=== PATIENT | female | born 1975 | race Hispanic/Latino ===

== ENCOUNTER 2016-12-30 20:43 | Emergency (ER) | payer BC ==
[2016-12-30 21:33] LABS: #Basophils 0.1 thou/uL (0.0-0.2); #Eosinphils 0.3 thou/uL (0.0-0.7); #Lymphocytes 2.5 thou/uL (1.20-3.40); #Monocytes 0.5 thou/uL (0.11-0.59); #Neutrophils 5.3 thou/uL (1.40-6.50); %Eosinophils 3.2 % (0.0-10.0); %Lymphocytes 28.6 % (21.0-51.0); %Monocytes 5.8 % (0.0-10.0); Hematocrit 39.1 % (36.0-47.0); Red Blood Cell (RBC) Count 3.99 mill/uL (4.20-5.40); White Blood Cell (WBC) Count 8.6 thou/uL (4.8-10.8)
[2016-12-30] MEDS ORDERED: Ondansetron HCl/PF 4 MG/2 ML Vial ONE ×2 (21:47→22:52)
[2016-12-30 21:58] LABS: ALT (SGPT) 19 U/L (8-55); AST (SGOT) 18 U/L (5-34); Alkaline Phosphatase 60 U/L (40-150); Anion Gap 13 mmol/L (10-20); BUN (Urea Nitrogen) 11 mg/dL (7.0-18.7); Bilirubin, Total 0.5 mg/dL (0.2-1.2); Calc. Creatinine Clearance 0 mL/min (70-130); Calcium 9.5 mg/dL (7.8-10.44); Carbon Dioxide 27 mmol/L (22-29); Chloride 98 mmol/L (98-107); Estimated GFR-MDRD 86; Globulin 3.3 g/dL (2.4-3.5); Protein, Total 7.8 g/dL (6.0-8.3)
[2016-12-30] MEDS ORDERED: diphenhydrAMINE 50 MG/ML VIAL ONE (22:52)
[2016-12-30] MEDS ORDERED: Metoclopramide HCl 10 MG/2 ML VIAL ONE (22:52)
[2016-12-30 22:55] LABS: Bilirubin Negative (Negative); Blood, Urine Negative (Negative); Glucose, Urine (Dipstick) Negative (Negative); Ketone, Urine Negative (Negative); Nitrite Negative (Negative); Protein, Urine (Dipstick) Negative (Neg-Trace); Urobilinogen 0.2 mg/dL (0.2-1.0)
--- NOTE | 2016-12-30 22:55 | CT ---
CT HEAD NONCONTRAST 12/30/16 HISTORY: Headache. FINDINGS: No comparison. There is no evidence of acute intracranial hemorrhage or infarct. The ventricles appear normal in siz e, shape and position. There is no mass effect or shift of midline structures. The visualized paranas al sinuses remain well aerated. IMPRESSION: No acute intracranial abnormalities are demonstrated on noncontrast CT head. POS: [facility]
--- NOTE | 2016-12-30 23:03 | RAD ---
CHEST ONE VIEW 12/30/16 HISTORY: Cough. COMPARISON: 09/12/08. FINDINGS: Cardiac silhouette and pulmonary vasculature are unremarkable. Mediastinum is midline. There is no co nfluent air space consolidation or evidence of pneumothorax. IMPRESSION: No active cardiopulmonary abnormalities are demonstrated. POS: [facility]
[2016-12-30 23:05] LABS: Magnesium 2.1 mg/dL (1.6-2.6)
--- NOTE | 2017-02-06 13:38 | EKG ---
Test Reason : Blood Pressure : / mmHG Vent. Rate : 099 BPM Atrial Rate : 099 BPM P-R Int : 140 ms QRS Dur : 080 ms QT Int : 344 ms P-R-T Axes : 023 053 023 degrees QTc Int : 441 ms Normal sinus rhythm Normal ECG Confirmed by ALLISON VENTURA ([id number]), editor newspaper SANTI MENDOZA ([id number]) on 02/06/2017 1:38:19 PM Referred By: Confirmed By:ALLISON VENTURA
== END 2016-12-31 00:54 | disposition home or self-care (01) ==
LOC: ERS 20:43
DX: R51 Headache (principal); I10 Essential (primary) hypertension; F17.210 Nicotine dependence, cigarettes, uncomplicated; Z79.899 Other long term (current) drug therapy
CPT/HCPCS: 36415; 70450; 71010; 80053; 81003; 83690; 83735; 85025; 85379; 87086; 93005; 96365; 96375; 96376; 99406; J1200; J2405; J2765

== ENCOUNTER 2017-11-12 15:23 | Outpatient (CLI) | payer BC | END 2017-11-12 15:24 | disposition home or self-care (01) | LOC: BICMAMMO 15:23 | PROVIDERS: ATTEND Family Medicine | DX: Z12.31 Encounter for screening mammogram for malignant neoplasm of breast (principal); R92.1 Mammographic calcification found on diagnostic imaging of breast | CPT/HCPCS: 77063; 77067 ==

== ENCOUNTER 2023-01-23 14:56 | Outpatient (CLI) | payer BC | END 2023-01-23 14:57 | disposition home or self-care (01) | LOC: BICMAMMO 14:56 | PROVIDERS: ATTEND Student in an Organized Health Care Education/Training Program | DX: Z12.31 Encounter for screening mammogram for malignant neoplasm of breast (principal) | CPT/HCPCS: 77063; 77067 ==